=== PATIENT | female | born 1940 | race African-American/Black ===

== ENCOUNTER 2018-03-28 07:14 | Emergency (ER) | payer SELFPAY ==
[2018-03-28 07:26] VITALS: BP 159/80; PULSE 66; TEMP 98.4; BMI 36.0
[2018-03-28] MEDS ORDERED: IBUPROFEN 600 MG TABLET (FP) PO ONE ×2 (08:15→08:18)
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
== END 2018-03-28 08:47 | disposition home or self-care (01) ==
LOC: JER 07:14
DX: S16.1XXA Strain of muscle, fascia and tendon at neck level, initial encounter (principal); S80.812A Abrasion, left lower leg, initial encounter; V47.6XXA Car passenger injured in collision with fixed or stationary object in traffic accident, initial encounter; Y92.488 Other paved roadways as the place of occurrence of the external cause; Y93.89 Activity, other specified; Y99.8 Other external cause status
CPT/HCPCS: 99281-25